=== PATIENT | male | born 1995 | race Caucasian/White ===

== ENCOUNTER 2024-02-02 18:44 | Emergency (ER) | payer SELFPAY ==
[2024-02-02 18:46] VITALS: BP 162/101; PULSE 79; RESP 14; TEMP 36.6; O2SAT 98
--- NOTE | 2024-02-02 19:10 | ED.GENADUL_ITS ---
Discharge Plan Disposition Patient Disposition: Home Condition: Stable Discharge Details Clinical Impression: Elevated blood pressure reading, Cellulitis Primary Care Provider: Juan Pablo Haynes ED Provider: Castillo Garcia Home Meds and New Rx's Prescriptions: New sulfamethoxazole-trimethoprim [Bactrim DS] 800-160 mg tablet 1 tab PO BID 7 Days Qty: 14 0RF Discharge Instructions Instructions: Cellulitis (ED) Additional Instructions: start antibiotics and complete full prescribed course monitor redness, if it continues to spread up the leg please get re-evaluated if you develop fever, chills or drainage from your wound, please get re- evaluated your blood pressure was elevated today. Follow up with PCP to recheck this you have been placed on care management list to help establish care with PCP HPI General Date/Time Provider Initiated Documentation: 02/02/24 19:01 . Limitations to Documentation: no limitations . Information obtained by: patient . HPI Narrative: 28-year-old gentleman without known medical history presents for evaluation of left foot redness and pain. Reports that symptoms started 2 days ago with some redness and irritation in between his toes. He attributed this to athlete's foot which she has had before and used some Tinactin spray. He states that by that evening, he had significant redness about half-way up his foot. The redness, swelling and pain has now increased and is almost back up to his ankle. He reports the pain is significant, especially with walking and palpation. He states that this is never happened before. He denies any open wounds, bites or exposures to fresh water. He states that he has generally sweaty feet and has had issues with athlete's foot before. He has no known diagnosis of diabetes. He states he does not take any medications. Related Data Home Medications Medication Instructions Recorded Confirmed sulfamethoxazole 800 1 tab PO BID 7 days #14 tabs 02/02/24 mg-trimethoprim 160 mg tablet (Bactrim DS) Previous Rx's Medication Instructions Recorded sulfamethoxazole 800 1 tab PO BID 7 days #14 tabs 02/02/24 mg-trimethoprim 160 mg tablet (Bactrim DS) Allergies Allergy/AdvReac Type Severity Reaction Status Date / Time No Known Allergies Allergy Unverified 02/02/24 19:04 General Stated Complaint: Orthopedic TASHA: 4 Exam Narrative Exam Narrative: Review of Systems: All systems reviewed & are unremarkable except as noted in HPI and below Well-developed, no acute distress NCAT PERRL, normal conjunctiva RRR Unlabored respiratory effort Nondistended abdomen Extremities w/o deformity, no cyanosis left foot with erythema and mild edema. no open wounds no focal neurologic deficits Appropriate mood and affect Course Vital Signs Vital signs: Vital Signs Temperature 36.6 C 02/02/24 18:46 Pulse 79 02/02/24 18:46 Respiratory Rate 14 02/02/24 18:46 Blood Pressure 162/101 H 02/02/24 18:46 Pulse Oximetry 98 02/02/24 18:46 Temperature 36.6 C 02/02/24 18:46 Pulse 79 02/02/24 18:46 Respiratory Rate 14 02/02/24 18:46 Respiratory Effort Normal 02/02/24 18:51 Blood Pressure 162/101 H 02/02/24 18:46 Pulse Oximetry 98 02/02/24 18:46 Medical Decision Making emergent evaluation of foot redness. initial DDX includes cellulitis, fungal infection, doubt osteo or nec infection. no known DM history. will check labs, xr to eval for gas. given low risk factors, may be amenable for oral abx treatment. lab work reviewed, no elevation in WBC. CRP slightly elevated. XR reviewed, no gas in tissues. A dose of ancef given in ED. Wound marked. Advised to take medicine as prescribed and monitor area of redness. return precautions advised. Care management referral placed to help establish PCP as patient needs follow up for elevated BP. Medical Records Medical records reviewed: Yes I reviewed the patient's medical records. Lab Data Lab results reviewed: Yes I reviewed the patient's lab results. Quality:SDOH Health Related Social Needs: No Data to Display PFSH All Active Problems (Updated 02/02/24 @ 20:06 by Castillo Garcia MD) Cellulitis (Acute) Elevated blood pressure reading (Acute) Social History Smoking risk assessment performed?: No
[2024-02-02 19:22] VITALS: BP 141/108; PULSE 85; RESP 18; O2SAT 98
[2024-02-02 19:23] LABS: Abs Immature Grans 0.02 10^3/uL (0.0-0.06); Absolute Basophil Count 0.03 10^3/uL (0.0-0.2); Absolute Eosinophil Count 0.25 10^3/uL (0.0-0.7); Absolute Monocyte Count 0.61 10^3/uL (0.1-0.8); Absolute Neutrophil Count 2.67 10^3/uL (1.2-6.7); Basophils % 0.5; Eosinophils % 4.1; HCT 43.9 % (40.0-50.0); HGB 14.7 g/dL (13.5-17.5); Immature Grans % 0.3; Lymphocytes % 41.1; MCH 27.7 pg (27.0-33.0); MCHC 33.5 % (32.0-36.0); MCV 83 fL (80-95); MPV 8.8 fL (8.0-11.0); Platelet Count 319 10^3/uL (130-400); RDW 12.7 % (11.8-14.1); RDW-SD 38.3 fL; WBC 6.08 10^3/uL (4.4-10.8)
[2024-02-02 19:25] LABS: ESR 11 mm/hr (0-15)
--- NOTE | 2024-02-02 19:33 | DI.RAD_ITS ---
Exam(s) XR FOOT LT COMPLETE EXAM: XR FOOT LT COMPLETE CLINICAL HISTORY: foot infection. TECHNIQUE: 2D digital imaging was performed. Three views. COMPARISON: No exams were available for comparison FINDINGS: BONES: No acute fracture is present. No bony destructive lesion is seen. Small enthesophyte at the Ac hilles insertion. JOINTS: No dislocation present. SOFT TISSUE: Dorsal soft tissue swelling. No foreign body or gas collection. IMPRESSION: Soft tissue swelling. DATA REPOSITORY: RADIATION DOSE DELIVERED:
[2024-02-02 19:34] VITALS: BP 143/99; PULSE 79
[2024-02-02 19:43] VITALS: BP 136/95; PULSE 75
[2024-02-02 19:46] VITALS: BP 145/104; PULSE 80
[2024-02-02 19:46] LABS: Hemoglobin A1C 5.5 % (<5.7)
--- NOTE | 2024-02-02 19:54 | DI.VRAD_ITS ---
PROCEDURE INFORMATION: Exam: XR Left Foot Exam date and time: 02/02/2024 19:27 Age: 28 years old Clinical indication: Patient HX: Foot infection. Patient said redness started around his metatarsals yesterday and spread to his whole foot today TECHNIQUE: Imaging protocol: Radiologic exam of the left foot. Views: 3 or more views. COMPARISON: No relevant prior studies available. FINDINGS: Bones/joints: No acute fracture or subluxation. No focal osseous erosion. Posterior calcaneal spur. Soft tissues: Soft tissue swelling in the dorsal forefoot IMPRESSION: No acute bony pathology. Dictated and Authenticated by: Jesica Rock MD. Ordering:KaranCHANDNI Slade MD
[2024-02-02 20:02] LABS: ALT 34 U/L (16-63); AST 20 U/L (15-37); Albumin 4.3 g/dL (3.4-5.0); Alkaline Phosphatase 73 U/L (46-116); Anion Gap 11.1 mmol/L (3-11); BUN 13 mg/dL (7-18); Bilirubin, Total 0.3 mg/dL (0.2-1.0); C-Reactive Protein 0.88 mg/dL (<or=0.5); CO2 26.9 mmol/L (21.0-32.0); Calcium 8.9 mg/dL (8.5-10.1); Chloride 103 mmol/L (98-107); Estimated GFR 104.48 (mL/min/1.73m2); Glucose 84 mg/dL (74-106); Sodium 141 mmol/L (136-145); Total Protein 8.4 g/dL (6.4-8.2)
--- NOTE | 2024-02-02 20:21 | NUR.NOTE ---
Referral to Care Management to establish pcp next available appt to f/u hypertention.Nursing Note:
[2024-02-02 20:22] VITALS: BP 137/103; PULSE 78; RESP 18; O2SAT 96
== END 2024-02-02 20:24 | disposition home or self-care (01) ==
PROVIDERS: Emergency Provider Emergency Medicine; PCP Internal Medicine
DX: L03.116 Cellulitis of left lower limb (principal); R03.0 Elevated blood-pressure reading, without diagnosis of hypertension; M79.672 Pain in left foot
CPT/HCPCS: 80053; 85652; 96365; 99284; 73630; 83036; 85025; 86140; 99283; J0690